=== PATIENT | female | born 1945 | race Caucasian/White ===

== ENCOUNTER → 2016-07-16 | Outpatient (CLI) | payer OTHER | LOC: BMCIMAGING 12:57 | PROVIDERS: ATTEND Family Medicine | DX: Z12.39 Encounter for other screening for malignant neoplasm of breast (principal); N64.4 Mastodynia | CPT/HCPCS: 76641; G0204 ==

== ENCOUNTER 2016-11-08 13:42 | Emergency (ER) | payer OTHER ==
--- NOTE | 2016-11-08 13:56 | CPEKG ---
Heart Rate: 71 RR Interval: 845 P-R Interval: 192 QRSD Interval: 96 QT Interval: 412 QTC Interval: 448 P [place]: 75 QRS [place]: -35 T Wave [place]: 53 EKG Severity - BORDERLINE ECG - EKG Impression: SINUS RHYTHM EKG Impression: LEFT AXIS DEVIATION EKG Impression: BORDERLINE R WAVE PROGRESSION, ANTERIOR LEADS Electronically Signed By: Jaziel Hatch 08-Nov-2016 15:05:54
[2016-11-08 14:01] VITALS: RESP 18
[2016-11-08] MEDS ORDERED: NS 1,000 ML IV ONE (14:02)
[2016-11-08 14:13] LABS: % IMMATURE GRANULYOCYTES 0.3 % (0.0-1.1); ABSOLUTE IMMATURE GRANULOCYTES 0.02 10^3/uL (0.00-0.10); ADD DIFF? NO; ADD MORPH? NO; ADD SCAN? NO; ATYPICAL LYMPHOCYTE FLAG 20 (0-99); FRAGMENT RBC FLAG 0 (0-99); HEMATOCRIT 43.1 % (38.0-47.0); HEMOGLOBIN 14.2 g/dL (12.6-16.3); LEFT SHIFT FLG 0 (0-99); LIPEMIA HEMOLYSIS FLAG 80 (0-99); MEAN CELL HEMOGLOBIN 29.5 pg (27.9-34.1); MEAN CELL HEMOGLOBIN CONCENTR. 32.9 g/dL (32.4-36.7); MEAN CELL VOLUME 89.4 fL (81.5-99.8); MEAN PLATELET VOLUME 9.3 fL (8.7-11.7); PLATELET CLUMPS FLAG 0 (0-99); PLATELET COUNT 293 10^3/uL (150-400); RED BLOOD CELL COUNT 4.82 10^6/uL (4.18-5.33); RED CELL DISTRIBUTION WIDTH 13.8 % (11.5-15.2)
--- NOTE | 2016-11-08 14:15 | EDPHY ---
H & P Stated Complaint: single episode yesterday at 5pm /chest felt like in vise/ lasted 10 min Source: Patient, Family Exam Limitations: No limitations - Personal History Current Tetanus/Diphtheria Vaccine: Yes - Medical/Surgical History Hx Asthma: No Hx Chronic Respiratory Disease: No Hx Diabetes: No Hx Cardiac Disease: No Hx Renal Disease: No Hx Cirrhosis: No Hx Alcoholism: No Hx HIV/AIDS: No Hx Splenectomy or Spleen Trauma: No Other PMH: denies - Social History Smoking Status: Never smoked HPI/ROS: CHIEF COMPLAINT: Chest Pain HISTORY OF PRESENT ILLNESS: Patient reports an episode of chest pain that started 5:00 p.m. yesterday. This occurred while driving. It was central left- sided chest pain. This radiated up into the neck in the left shoulder. It lasted a total of 15 minutes and then resolved spontaneously. No associated jaw pain. No associated diaphoresis or nausea. No shortness of breath. She said she felt tired and somewhat lightheaded at the time. No recurrence of this chest pressure since then. She does feel somewhat tired today. She has no cough, fever or chills. No trauma or injury. No lower extremity erythema edema or pain. No recent travel or surgery. No history of venous thrombolic event. Remote cardiac workup. Than 10 years ago. Nonsmoker and nondiabetic. No other associated complaints or modifying factors FAMILY HISTORY CARDIAC: Denies PRIOR CARDIAC WORKUP: Stress test greater than 10 years ago REVIEW OF SYSTEMS: Ten systems reviewed and are negative unless otherwise noted in the HPI EXAMINATION: General Appearance: Alert, no distress Head: normocephalic, atraumatic Eyes: Pupils equal and round, no conjunctival pallor or injection ENT, Mouth: Mucous membranes moist. Uvula midline. Neck: Normal inspection, supple, non-tender. Midline trachea Respiratory: Lungs are clear to auscultation. No wheezing, rhonchi or crackles Cardiovascular: Regular rate and rhythm. No murmur pulses intact distally symmetrically Gastrointestinal: Abdomen is soft and nontender Back: non-tender, no bony abnormalities Neurological: GCS 15 A&O, nonfocal, normal gait Skin: Warm and dry, no rash. No lacerations abrasions or contusions Extremities: Nontender, no pedal edema Psychiatric: Mood and affect normal DIFFERENTIAL DIAGNOSES: Including but not limited to in no particular order: Acute Chest Pain, ACS, Stable Angina, Pneumonia, PE, duodenitis, gastritis, esophagitis, GERD MDM: 2:15 p.m. Episode of chest pressure that lasted 15 minutes yesterday afternoon around 5: 00 p.m.. This resolved spontaneously without intervention. No shortness of breath. No diaphoresis. No vomiting. No pain at this time. Vital signs stable. Laboratory studies, chest x-ray are pending. EKG is unremarkable for any ischemia. 2:55 p.m. Laboratory studies are all within normal limits. This includes a negative troponin. This is sensitive as the pain started yesterday at 5:00 p.m. resolved 15 minutes later. No recurrence of the pain at any time. I have re- evaluated the patient and she is comfortable being discharged home. I discussed the case with Dr. Hatch and he is comfortable this plan as well. She is discharged home stable condition. She is instructed to contact her primary care physician on Thursday morning for further care. She is also instructed to contact Cardiology for workup. She is to return here for any return of any chest pain of any kind. She agrees to do so. EKG: Interpreted by Dr. Hatch Sinus rhythm without acute ischemia SUPERVISION: Patient was evaluated in conjunction with the supervising physician. Please see their note for details. (José Miguel Martinez) Constitutional: Initial Vital Signs Temperature (C) 36.6 C 11/08/16 13:42 Heart Rate 83 11/08/16 13:42 Respiratory Rate 20 11/08/16 13:42 Blood Pressure 184/82 H 11/08/16 13:42 O2 Sat (%) 97 11/08/16 13:42 O2 Delivery Mode Room Air Allergies/Adverse Reactions: No Known Allergies Allergy (Unverified 11/08/16 13:42) Home Medications: Medication Instructions Recorded NK [No Known Home Meds] 11/08/16 Medical Decision Making - Diagnostics EKG Interpretation: EKG interpreted by me shows normal sinus rhythm with normal interval. There is left axis deviation. QRS is otherwise normal. There is no significant ST elevation or depression. No arrhythmia. Rate is 71 No previous EKGs in our system for comparison (Jaziel Hatch) Imaging Results: Imaging Impressions Chest X-Ray 11/08/16 14:14 Impression: Peribronchial thickening suggesting bronchitis or mild fluid overload. ED Course/Re-evaluation: I did not see this patient while she was in the emergency department. However her care was discussed with the PA while the patient was in the department. I agree with treatment plan and management (Jaziel Hatch) - Data Points Laboratory Results: Laboratory Results 11/08/16 14:00 11/08/16 14:00 11/08/16 11/08/16 14:00 14:00 WBC 6.79 10^3/uL 10^3/uL (3.80-9.50) RBC 4.82 10^6/uL 10^6/uL (4.18-5.33) Hgb 14.2 g/dL g/dL (12.6-16.3) Hct 43.1 % % (38.0-47.0) MCV 89.4 fL fL (81.5-99.8) MCH 29.5 pg pg (27.9-34.1) MCHC 32.9 g/dL g/dL (32.4-36.7) RDW 13.8 % % (11.5-15.2) Plt Count 293 10^3/uL 10^3/uL (150-400) MPV 9.3 fL fL (8.7-11.7) Neut % (Auto) 68.4 % % (39.3-74.2) Lymph % (Auto) 21.5 % % (15.0-45.0) Nolan % (Auto) 8.2 % % (4.5-13.0) Eos % (Auto) 0.9 % % (0.6-7.6) Baso % (Auto) 0.7 % % (0.3-1.7) Nucleat RBC Rel Count 0.0 % % (0.0-0.2) Absolute Neuts (auto) 4.64 10^3/uL 10^3/uL (1.70-6.50) Absolute Lymphs (auto) 1.46 10^3/uL 10^3/uL (1.00-3.00) Absolute Monos (auto) 0.56 10^3/uL 10^3/uL (0.30-0.80) Absolute Eos (auto) 0.06 10^3/uL 10^3/uL (0.03-0.40) Absolute Basos (auto) 0.05 10^3/uL 10^3/uL (0.02-0.10) Absolute Nucleated RBC 0.00 10^3/uL 10^3/uL (0-0.01) Immature Gran % 0.3 % % (0.0-1.1) Immature Gran # 0.02 10^3/uL 10^3/uL (0.00-0.10) Sodium 139 mEq/L mEq/L (134-144) Potassium 3.9 mEq/L mEq/L (3.5-5.2) Chloride 104 mEq/L mEq/L (97-110) Carbon Dioxide 25 mEq/l mEq/l (22-31) Anion Gap 10 mEq/L mEq/L (8-16) BUN 24 mg/dL H mg/dL (7-23) Creatinine 0.8 mg/dL mg/dL (0.6-1.0) Estimated GFR > 60 Glucose 98 mg/dL mg/dL (70-100) Calcium 9.2 mg/dL mg/dL (8.5-10.4) Troponin I < 0.012 ng/mL ng/mL (0-0.034) Medications Given: Discontinued Medications Sodium Chloride (Ns) 1,000 mls @ 0 mls/hr IV ONCE ONE PRN Reason: Wide Open Stop: 11/08/16 14:03 Last Admin: 11/08/16 14:02 Dose: 1,000 mls Departure - Departure Disposition: Home, Routine, Self-Care Clinical Impression: Chest pain Qualifiers: Chest pain type: unspecified Qualified Code(s): R07.9 - Chest pain, unspecified Condition: Good Instructions: Chest Pain (ED) Additional Instructions: 1. Take 81mg aspirin daily 2. Follow up with primary care physician early next week 3. Follow up with Cardiology for further workup 4. Return to the emergency department immediately for any return of chest pain of any kind Referrals: Gali Velasquez MD [Primary Care Provider] - As per Instructions [facility] [Provider Group] - As per Instructions
[2016-11-08 14:22] LABS: ANION GAP 10 mEq/L (8-16); CALCIUM 9.2 mg/dL (8.5-10.4); CARBON DIOXIDE 25 mEq/l (22-31); CHLORIDE 104 mEq/L (97-110); CREATININE 0.8 mg/dL (0.6-1.0); GLOMERULAR FILTRATION RATE > 60; GLUCOSE 98 mg/dL (70-100); POTASSIUM 3.9 mEq/L (3.5-5.2); SODIUM 139 mEq/L (134-144)
[2016-11-08 14:34] LABS: TROPONIN I < 0.012 ng/mL (0-0.034)
[2016-11-08 15:15] VITALS: BP 167/76; PULSE 73; TEMP 98.4; O2SAT 96
== END 2016-11-08 15:15 | disposition home or self-care (01) ==
DX: R07.9 Chest pain, unspecified (principal)

== ENCOUNTER → 2017-02-18 | Outpatient (CLI) | payer OTHER | LOC: BMCIMAGING 11:07 | PROVIDERS: ATTEND Family Medicine | DX: M50.320 Other cervical disc degeneration, mid-cervical region, unspecified level (principal); M50.321 Other cervical disc degeneration at C4-C5 level; M50.322 Other cervical disc degeneration at C5-C6 level; M50.323 Other cervical disc degeneration at C6-C7 level; M50.33 Other cervical disc degeneration, cervicothoracic region ==